=== PATIENT | male | born 1955 | race Caucasian/White ===

== ENCOUNTER 2016-07-14 18:46 | Inpatient (IN) | payer OTHER ==
[~2016-07-14] VITALS: Ht 177.8 cm; Wt 79.4 kg
[~2016-07-14 18:46] MED LIST: MOTRIN800 MG PO; NOHOMEMEDS; OMEPRAZOLE40 M1 PO; PERCOCET 10/1 TABLET PO; PERCOCET 5/31 TABLET PO; ZOFRAN ODT4 MG PO
[2016-07-14 19:43] LABS: AMPHETAMINE NEGATIVE (500 ng/mL); BARBITURATES NEGATIVE (200 ng/mL); BENZODIAZEPINES PRESUMPTIVE POSITIVE (150 ng/mL); COCAINE PRESUMPTIVE POSITIVE (150 ng/mL); METHADONE NEGATIVE (200 ng/mL); METHAMPHETAMINE NEGATIVE (500 ng/mL); OPIATES (MORPHINE) NEGATIVE (100 ng/mL); OXYCODONE NEGATIVE (100 ng/mL); PHENCYCLIDINE NEGATIVE (25 ng/mL); PROPOXYPHENE NEGATIVE (300 ng/mL); THC CANNABINOIDS NEGATIVE (50 ng/mL); TRICYCLIC ANTIDEPRESSANTS NEGATIVE (300 ng/mL)
[2016-07-14 19:44] LABS: ADD MEDTOX COMMENT Y; INTERNAL CONTROLS VALID? YES
[2016-07-14 19:49] LABS: EOSINOPHIL (%) 0.8 % (0-5); EOSINOPHIL COUNT 0.1 K/uL (0-0.3); HEMATOCRIT 55.8 % (38.0-50.0); IMMATURE GRANULOCYTE (%) 1.3 % (0.0-0.7); IMMATURE GRANULOCYTE COUNT 0.1 K/uL; INSTRUMENT ABS NEUTROPHIL CT 5.9 K/uL; LYMPHOCYTE COUNT 2.5 K/uL (1.0-2.8); MCHC 33.5 G/DL (30.0-36.0); MCV 95.4 FL (86-99); MEAN PLAT.VOLUME 9.1 uM^3 (9.0-12.4); MONOCYTE (%) 6.8 % (3-12); MONOCYTE COUNT 0.6 K/uL (0-0.8); NEUTROPHIL (%) 63.3 % (45-76); NEUTROPHIL COUNT 5.9 K/uL (1.8-6.4); PLATELET COUNT 270 K/uL (156-360); RBC DIS.WIDTH-CV 13.6 % (11.8-14.6); RBC DIS.WIDTH-SD 48.5 % (39-53); RED BLOOD COUNT 5.85 M/uL (4.00-5.50); WHITE BLOOD COUNT 9.3 K/uL (4.1-10.2)
[2016-07-14 20:00] LABS: CHLORIDE 105 mEq/L (99-109); POTASSIUM 3.7 mEq/L (3.7-5.4); SODIUM 140 mEq/L (136-147)
[2016-07-14 20:02] LABS: GLUCOSE 169 mg/dL (70-99)
[2016-07-14 20:04] LABS: ANION GAP 14 MEQ/L (2-14)
[2016-07-14 20:05] LABS: SERUM ETHYL ALCOHOL 28 mg/dL
[2016-07-14 20:06] LABS: ALKALINE PHOSPHATASE 87 IU/L (3-129); GFR ESTIMATE (CALCULATED) > 59 mL/min/
[2016-07-14 20:07] LABS: UREA NITROGEN (BUN) 6 mg/dL (9-23)
[2016-07-14 20:08] LABS: DIRECT BILIRUBIN 0.3 mg/dL (0.0-0.3)
[2016-07-14 20:10] LABS: CREATINE KINASE 334 IU/L (1-294); LIPASE 57 U/L (1.0-51.0); TROP-I INTERPRETATION NEGATIVE; TROPONIN-I 0.01 ng/mL (0.0-0.30)
[2016-07-14 20:39] LABS: BENZODIAZEPINES, URINE SCREEN POSITIVE (200 ng/mL)
[2016-07-14 21:38] LABS: BASE EXCESS -3.9 mEq/L (-3 to +3); BICARBONATE 26.4 mEq/L (22-26); CARBOXY HGB 2.6 % (0-5); METHEMOGLOBIN 1.2 % (0-1.5); PCO2 69 mm Hg (35-45); PO2 104 mm Hg (80-100)
[2016-07-14 21:39] LABS: COMMENTS - BLOOD GASES A+C+; DEVICE VENT; FI02 100 %; MECHANICAL RATE 16 resp/min; MODE AC; PEEP 5 CM/H20; SITE RR; TIDAL VOLUME 400 ML; pH 7.19 (7.35-7.45)
[2016-07-15] VITALS (30 sets, daily range): BP systolic 0–121; BP diastolic 0–90
[2016-07-15 01:18] LABS: POINT-OF-CARE METER ID UU13113731
[2016-07-15 02:31] LABS: METH RESISTANT S AUREUS PCR NEGATIVE (NEGATIVE)
[2016-07-15 02:32] LABS: PROBE CHECK PASS; SPECIMEN PROCESSING CONTROL PASS
[2016-07-15 02:33] LABS: INFLUENZA A VIRAL ANTIGEN NEGATIVE; INFLUENZA B VIRAL ANTIGEN NEGATIVE
[2016-07-15 05:25] LABS: INTER. NORMALIZED RATIO 1.1
[2016-07-15 06:13] LABS: HEMATOCRIT 49.5 % (38.0-50.0); MCHC 33.3 G/DL (30.0-36.0); MCV 95.9 FL (86-99); MEAN PLAT.VOLUME 9.3 uM^3 (9.0-12.4); RBC DIS.WIDTH-SD 49.5 % (39-53); RED BLOOD COUNT 5.16 M/uL (4.00-5.50); WHITE BLOOD COUNT 13.1 K/uL (4.1-10.2)
[2016-07-15 06:14] LABS: PLATELET COUNT 187 K/uL (156-360)
[2016-07-15 06:23] LABS: ALKALINE PHOSPHATASE 63 IU/L (3-129); ANION GAP 11 MEQ/L (2-14); CHLORIDE 106 MEQ/L (99-109); GFR ESTIMATE (CALCULATED) > 59 mL/min/; MAGNESIUM 1.6 mg/dl (1.3-2.7); POTASSIUM 4.2 MEQ/L (3.7-5.4); SAMPLE HEMOLYSIS CHECK 0; SAMPLE ICTERIC CHECK 0; SAMPLE LIPEMIA CHECK 0; SODIUM 142 MEQ/L (136-147); TOTAL BILIRUBIN 1.1 MG/DL (0.0-1.0); UREA NITROGEN (BUN) 6 mg/dL (9-23)
[2016-07-15 06:24] LABS: GLUCOSE 102 mg/dL (70-99)
[2016-07-15 06:27] LABS: BASE EXCESS 0.9 mEq/L (-3 to +3); BICARBONATE 25.3 mEq/L (22-26); CARBOXY HGB 1.9 % (0-5); COMMENTS - BLOOD GASES C+; DEVICE VENT; FI02 40 %; MECHANICAL RATE 20 resp/min; METHEMOGLOBIN 1.6 % (0-1.5); MODE AC; PCO2 39 mm Hg (35-45); PEEP 5 CM/H20; PO2 85 mm Hg (80-100); SITE LR; TIDAL VOLUME 400 ML; TOTAL RESP RATE 20 resp/min; pH 7.42 (7.35-7.45)
[2016-07-15 06:43] LABS: POINT-OF-CARE METER ID UU13113803
[2016-07-15] MEDS ORDERED: PERCOCET 5/31 TABLET PO (11:58)
[2016-07-15 12:22] LABS: POINT-OF-CARE METER ID UU13113803
[2016-07-15 18:17] LABS: POINT-OF-CARE METER ID UU13113803
[2016-07-16] VITALS (15 sets, daily range): BP systolic 124–153; BP diastolic 71–98
[2016-07-16 00:42] LABS: POINT-OF-CARE METER ID UU13113803
[2016-07-16 06:53] LABS: HEMATOCRIT 42.6 % (38.0-50.0); MCH 32.5 PG (29.0-34.0); MCV 95.5 FL (86-99); MEAN PLAT.VOLUME 9.7 uM^3 (9.0-12.4); PLATELET COUNT 155 K/uL (156-360); RBC DIS.WIDTH-CV 14.1 % (11.8-14.6); RBC DIS.WIDTH-SD 49.8 % (39-53); RED BLOOD COUNT 4.46 M/uL (4.00-5.50); WHITE BLOOD COUNT 9.3 K/uL (4.1-10.2)
[2016-07-16 07:13] LABS: ALKALINE PHOSPHATASE 53 IU/L (3-129); ANION GAP 7 MEQ/L (2-14); CHLORIDE 104 MEQ/L (99-109); GFR ESTIMATE (CALCULATED) > 59 mL/min/; GLUCOSE 77 mg/dL (70-99); MAGNESIUM 1.7 mg/dl (1.3-2.7); POTASSIUM 3.7 MEQ/L (3.7-5.4); SAMPLE HEMOLYSIS CHECK 0; SAMPLE ICTERIC CHECK 0; SAMPLE LIPEMIA CHECK 0; SODIUM 139 MEQ/L (136-147); UREA NITROGEN (BUN) 6 mg/dL (9-23)
[2016-07-16 07:22] LABS: TOTAL BILIRUBIN 1.4 MG/DL (0.0-1.0)
[2016-07-16 07:23] LABS: INTER. NORMALIZED RATIO 1.1; PROTHROMBIN TIME 11.4 (9.2-11.2)
[2016-07-16 12:17] LABS: POINT-OF-CARE METER ID UU14162636
[2016-07-17 06:35] LABS: HEMATOCRIT 44.5 % (38.0-50.0); MCH 32.4 PG (29.0-34.0); MCHC 34.6 G/DL (30.0-36.0); MCV 93.5 FL (86-99); MEAN PLAT.VOLUME 9.6 uM^3 (9.0-12.4); PLATELET COUNT 163 K/uL (156-360); RBC DIS.WIDTH-CV 13.4 % (11.8-14.6); RBC DIS.WIDTH-SD 46.4 % (39-53); RED BLOOD COUNT 4.76 M/uL (4.00-5.50)
[2016-07-17 06:44] LABS: INTER. NORMALIZED RATIO 1.1; PROTHROMBIN TIME 10.7 (9.2-11.2)
[2016-07-17 07:05] LABS: ALKALINE PHOSPHATASE 63 IU/L (3-129); ANION GAP 10 MEQ/L (2-14); CHLORIDE 104 MEQ/L (99-109); GFR ESTIMATE (CALCULATED) > 59 mL/min/; GLUCOSE 84 mg/dL (70-99); MAGNESIUM 1.8 mg/dl (1.3-2.7); POTASSIUM 3.5 MEQ/L (3.7-5.4); SAMPLE HEMOLYSIS CHECK 0; SAMPLE ICTERIC CHECK 0; SAMPLE LIPEMIA CHECK 0; SODIUM 140 MEQ/L (136-147); TOTAL BILIRUBIN 1.2 MG/DL (0.0-1.0); UREA NITROGEN (BUN) 5 mg/dL (9-23)
[2016-07-17 08:04] VITALS: BP 160/96
[2016-07-17 11:15] VITALS: BP 133/86; BP 143/72; BP 155/99
[2016-07-17 15:23] VITALS: BP 139/80
[2016-07-17 20:13] VITALS: BP 133/87
[2016-07-18] VITALS (7 sets, daily range): BP systolic 129–163; BP diastolic 79–90
[2016-07-18 06:04] LABS: HEMATOCRIT 45.6 % (38.0-50.0); MCH 32.8 PG (29.0-34.0); MCHC 34.4 G/DL (30.0-36.0); MCV 95.4 FL (86-99); MEAN PLAT.VOLUME 9.6 uM^3 (9.0-12.4); PLATELET COUNT 154 K/uL (156-360); RBC DIS.WIDTH-CV 13.6 % (11.8-14.6); RBC DIS.WIDTH-SD 47.8 % (39-53); RED BLOOD COUNT 4.78 M/uL (4.00-5.50); WHITE BLOOD COUNT 6.6 K/uL (4.1-10.2)
[2016-07-18 06:16] LABS: INTER. NORMALIZED RATIO 1.1; PROTHROMBIN TIME 10.8 (9.2-11.2)
[2016-07-18 06:54] LABS: ALKALINE PHOSPHATASE 56 IU/L (3-129); ANION GAP 6 MEQ/L (2-14); CHLORIDE 102 MEQ/L (99-109); GFR ESTIMATE (CALCULATED) > 59 mL/min/; GLUCOSE 83 mg/dL (70-99); MAGNESIUM 1.9 mg/dl (1.3-2.7); POTASSIUM 3.6 MEQ/L (3.7-5.4); SAMPLE HEMOLYSIS CHECK 0; SAMPLE ICTERIC CHECK 0; SAMPLE LIPEMIA CHECK 0; SODIUM 141 MEQ/L (136-147); UREA NITROGEN (BUN) 5 mg/dL (9-23)
[2016-07-18 06:58] LABS: TOTAL BILIRUBIN 0.8 MG/DL (0.0-1.0)
[2016-07-19 03:36] VITALS: BP 116/73
[2016-07-19 06:17] LABS: HEMATOCRIT 46.4 % (38.0-50.0); MCH 32.8 PG (29.0-34.0); MCHC 34.9 G/DL (30.0-36.0); MCV 93.9 FL (86-99); MEAN PLAT.VOLUME 9.3 uM^3 (9.0-12.4); PLATELET COUNT 152 K/uL (156-360); RBC DIS.WIDTH-CV 13.4 % (11.8-14.6); RED BLOOD COUNT 4.94 M/uL (4.00-5.50); WHITE BLOOD COUNT 7.1 K/uL (4.1-10.2)
[2016-07-19 07:38] VITALS: BP 118/72
[2016-07-19 09:40] LABS: ALKALINE PHOSPHATASE 61 IU/L (3-129); ANION GAP 8 MEQ/L (2-14); CHLORIDE 101 MEQ/L (99-109); GFR ESTIMATE (CALCULATED) > 59 mL/min/; GLUCOSE 84 mg/dL (70-99); MAGNESIUM 1.9 mg/dl (1.3-2.7); POTASSIUM 3.6 MEQ/L (3.7-5.4); SAMPLE HEMOLYSIS CHECK 0; SAMPLE ICTERIC CHECK 0; SAMPLE LIPEMIA CHECK 0; SODIUM 140 MEQ/L (136-147); TOTAL BILIRUBIN 0.6 MG/DL (0.0-1.0); UREA NITROGEN (BUN) 8 mg/dL (9-23)
[2016-07-19] MEDS ORDERED: PERCOCET 5/31 TABLET PO (10:15)
[2016-07-19 11:16] VITALS: BP 113/74
[2016-07-19 15:17] VITALS: BP 126/89
[2016-07-19 20:15] VITALS: BP 122/74
[2016-07-20] VITALS (7 sets, daily range): BP systolic 104–123; BP diastolic 55–79
[2016-07-20 06:14] LABS: HEMATOCRIT 45.7 % (38.0-50.0); MCH 31.9 PG (29.0-34.0); MCHC 34.1 G/DL (30.0-36.0); MCV 93.5 FL (86-99); MEAN PLAT.VOLUME 9.6 uM^3 (9.0-12.4); PLATELET COUNT 168 K/uL (156-360); RBC DIS.WIDTH-CV 13.2 % (11.8-14.6); RBC DIS.WIDTH-SD 45.2 % (39-53); RED BLOOD COUNT 4.89 M/uL (4.00-5.50); WHITE BLOOD COUNT 6.6 K/uL (4.1-10.2)
[2016-07-20 06:40] LABS: ALKALINE PHOSPHATASE 54 IU/L (3-129); ANION GAP 8 MEQ/L (2-14); CHLORIDE 103 MEQ/L (99-109); GFR ESTIMATE (CALCULATED) > 59 mL/min/; GLUCOSE 92 mg/dL (70-99); MAGNESIUM 1.9 mg/dl (1.3-2.7); POTASSIUM 3.6 MEQ/L (3.7-5.4); SAMPLE HEMOLYSIS CHECK 0; SAMPLE ICTERIC CHECK 0; SAMPLE LIPEMIA CHECK 0; SODIUM 141 MEQ/L (136-147); TOTAL BILIRUBIN 0.5 MG/DL (0.0-1.0); UREA NITROGEN (BUN) 8 mg/dL (9-23)
[2016-07-21 06:34] LABS: HEMATOCRIT 44.3 % (38.0-50.0); MCH 32.3 PG (29.0-34.0); MCHC 33.9 G/DL (30.0-36.0); MCV 95.3 FL (86-99); MEAN PLAT.VOLUME 9.5 uM^3 (9.0-12.4); PLATELET COUNT 183 K/uL (156-360); RBC DIS.WIDTH-CV 13.4 % (11.8-14.6); RBC DIS.WIDTH-SD 47.2 % (39-53); RED BLOOD COUNT 4.65 M/uL (4.00-5.50); WHITE BLOOD COUNT 6.2 K/uL (4.1-10.2)
[2016-07-21 07:11] LABS: ALKALINE PHOSPHATASE 54 IU/L (3-129); ANION GAP 6 MEQ/L (2-14); CHLORIDE 102 MEQ/L (99-109); GFR ESTIMATE (CALCULATED) > 59 mL/min/; GLUCOSE 85 mg/dL (70-99); MAGNESIUM 2.1 mg/dl (1.3-2.7); POTASSIUM 3.8 MEQ/L (3.7-5.4); SAMPLE HEMOLYSIS CHECK 0; SAMPLE ICTERIC CHECK 0; SAMPLE LIPEMIA CHECK 0; SODIUM 142 MEQ/L (136-147); TOTAL BILIRUBIN 0.5 MG/DL (0.0-1.0); UREA NITROGEN (BUN) 10 mg/dL (9-23)
[2016-07-21 07:16] VITALS: BP 153/80
[2016-07-21 11:34] VITALS: BP 106/60
[2016-07-21 15:29] VITALS: BP 116/78
[2016-07-21 19:59] VITALS: BP 127/81
[2016-07-21 23:49] VITALS: BP 146/76
[2016-07-22 03:39] VITALS: BP 142/76
[2016-07-22 07:48] VITALS: BP 113/86
[2016-07-22] MEDS ORDERED: ADVAIR HFA120 INHAL1 IH (08:07)
[2016-07-22] MEDS ORDERED: ESCITALOPRAM OX10 MG PO (08:07)
[2016-07-22] MEDS ORDERED: AZITHROMYCIN500 M1 PO (08:07)
[2016-07-22] MEDS ORDERED: VENTOLIN HFA18 GM IH (08:07)
[2016-07-22] MEDS ORDERED: SPIRIVA RESPIMAT4 GM IH (08:07)
[2016-07-22] MEDS ORDERED: NICOTINE PATCH1 EAC2 TD (08:07)
[2016-07-22] MEDS ORDERED: PREDNISONE20 MG PO (08:07)
[2016-07-22 11:07] VITALS: BP 109/70
== END 2016-07-22 15:25 | disposition home or self-care (01) | DRG 208 ==
LOC: EME 18:46 → EDBD 18:46 → 4WEST 22:28 → EDOF 22:28 → EDBD 22:28 → 5SOUTH 22:28 → 4WEST 23:50 → 5SOUTH 07-16 18:09
PROVIDERS: Emergency Medicine; Internal Medicine
DX: J44.9 Chronic obstructive pulmonary disease, unspecified (principal); G92 Toxic encephalopathy; G93.1 Anoxic brain damage, not elsewhere classified; S02.40EA Zygomatic fracture, right side, initial encounter for closed fracture; S02.40CA Maxillary fracture, right side, initial encounter for closed fracture; E87.2 Acidosis; D75.1 Secondary polycythemia; G89.29 Other chronic pain; F14.10 Cocaine abuse, uncomplicated; F16.90 Hallucinogen use, unspecified, uncomplicated; K71.6 Toxic liver disease with hepatitis, not elsewhere classified; W19.XXXA Unspecified fall, initial encounter; K57.90 Diverticulosis of intestine, part unspecified, without perforation or abscess without bleeding; F10.10 Alcohol abuse, uncomplicated; F19.20 Other psychoactive substance dependence, uncomplicated; F32.9 Major depressive disorder, single episode, unspecified; F41.1 Generalized anxiety disorder; K76.89 Other specified diseases of liver; T50.901A Poisoning by unspecified drugs, medicaments and biological substances, accidental (unintentional), initial encounter; Z72.0 Tobacco use; Z98.1 Arthrodesis status
CPT/HCPCS: 36600; 70450; 71010; 71250; 71260; 72125; 74177; 80048; 80053; 80076; 80202; 82550; 82803; 82948; 83605; 83690; 83735; 84100; 84484; 84999; 85025; 85027; 85610; 87040; 87070; 87205; 87502; 87641; 93005; 94002; 94003; 94640; 94640 76; 94644; 94799; 97530 GP; 99202; 99281; 99285; G0480; J0456; J1650; J1815; J2060; J2250; J2270; J2310; J2405; J2543; J2704; J3370; J7030; J7050; J7120; J7512; S0028

== ENCOUNTER 2017-05-06 07:24 | Emergency (ER) | payer OTHER ==
[~2017-05-06] VITALS: Ht 167.6 cm; Wt 66.3 kg
[~2017-05-06 07:24] MED LIST changes: +ADVAIR HFA120 INHAL1 IH; +AZITHROMYCIN500 M1 PO; +ESCITALOPRAM OX10 MG PO; +NICOTINE PATCH1 EAC2 TD; +PREDNISONE20 MG PO; +SPIRIVA RESPIMAT4 GM IH; +VENTOLIN HFA18 GM IH
[2017-05-06 07:54] LABS: HEMATOCRIT 45.4 % (38.0-50.0); HEMOGLOBIN 16.2 G/DL (12.5-16.6); MCHC 35.7 G/DL (30.0-36.0); MCV 86.8 FL (86-99); PLATELET COUNT 236 K/uL (156-360); RBC DIS.WIDTH-CV 13.1 % (11.8-14.6); RBC DIS.WIDTH-SD 41.4 % (39-53); RED BLOOD COUNT 5.23 M/uL (4.00-5.50); WHITE BLOOD COUNT 12.1 K/uL (4.1-10.2)
[2017-05-06 08:03] LABS: CHLORIDE 105 mEq/L (99-109); POTASSIUM 3.9 mEq/L (3.7-5.4); SODIUM 139 mEq/L (136-147)
[2017-05-06 08:05] LABS: GLUCOSE 140 mg/dL (70-99)
[2017-05-06 08:09] LABS: CREATININE 0.9 mg/dL (0.6-1.3); GFR ESTIMATE (CALCULATED) > 59 mL/min/ (58.99-99999)
[2017-05-06 08:10] LABS: UREA NITROGEN (BUN) 13 mg/dL (9-23)
[2017-05-06 08:14] LABS: TROP-I INTERPRETATION NEGATIVE; TROPONIN-I < 0.01 ng/mL (0.0-0.30)
[2017-05-06] MEDS ORDERED: LIDODERM 5% P1 PATCH TD (08:48)
[2017-05-06] MEDS ORDERED: MOTRIN800 MG PO (08:48)
[2017-05-06 09:11] VITALS: BP 142/91
== END 2017-05-06 09:18 | disposition home or self-care (01) ==
LOC: EME 07:24
PROVIDERS: Nurse Practitioner Family
DX: S40.011A Contusion of right shoulder, initial encounter (principal); S39.012A Strain of muscle, fascia and tendon of lower back, initial encounter; W18.30XA Fall on same level, unspecified, initial encounter; Z98.1 Arthrodesis status; G89.29 Other chronic pain; F17.200 Nicotine dependence, unspecified, uncomplicated; Z88.2 Allergy status to sulfonamides; Z88.8 Allergy status to other drugs, medicaments and biological substances
CPT/HCPCS: 72100; 73030; 80048; 84484; 85027; 93005; 99281; 99285

== ENCOUNTER 2017-08-05 21:00 | Inpatient (IN) | payer OTHER ==
[~2017-08-05] VITALS: Ht 165.1 cm; Wt 74.6 kg
[~2017-08-05 21:00] MED LIST changes: +LIDODERM 5% P1 PATCH TD
[2017-08-05 21:44] LABS: BASOPHIL (%) 0.5 % (0-1); BASOPHIL COUNT 0.1 K/uL (0-0.1); EOSINOPHIL (%) 0.9 % (0-5); EOSINOPHIL COUNT 0.1 K/uL (0-0.3); HEMATOCRIT 41.9 % (38.0-50.0); HEMOGLOBIN 14.9 G/DL (12.5-16.6); IMMATURE GRANULOCYTE (%) 0.7 % (0.0-0.7); LYMPHOCYTE (%) 31.3 % (15-42); LYMPHOCYTE COUNT 3.1 K/uL (1.0-2.8); MCH 32.1 PG (29.0-34.0); MCHC 35.6 G/DL (30.0-36.0); MCV 90.3 FL (86-99); MONOCYTE (%) 8.6 % (3-12); MONOCYTE COUNT 0.8 K/uL (0-0.8); NEUTROPHIL COUNT 5.6 K/uL (1.8-6.4); PLATELET COUNT 228 K/uL (156-360); RBC DIS.WIDTH-CV 14.2 % (11.8-14.6); RBC DIS.WIDTH-SD 46.8 % (39-53); RED BLOOD COUNT 4.64 M/uL (4.00-5.50); WHITE BLOOD COUNT 9.7 K/uL (4.1-10.2)
[2017-08-05 22:07] LABS: AMYLASE 28 IU/L (1-118); CHLORIDE 101 mEq/L (99-109); POTASSIUM 2.6 mEq/L (3.7-5.4); SODIUM 145 mEq/L (136-147)
[2017-08-05 22:09] LABS: GLUCOSE 96 mg/dL (70-99)
[2017-08-05 22:12] LABS: SERUM ETHYL ALCOHOL 145 mg/dL
[2017-08-05 22:13] LABS: CREATININE 0.7 mg/dL (0.6-1.3); GFR ESTIMATE (CALCULATED) > 59 mL/min/ (58.99-99999)
[2017-08-05 22:14] LABS: UREA NITROGEN (BUN) 8 mg/dL (9-23)
[2017-08-05 22:15] LABS: TROP-I INTERPRETATION NEGATIVE; TROPONIN-I < 0.01 ng/mL (0.0-0.30)
[2017-08-05 22:16] LABS: LIPASE 49 U/L (1.0-51.0)
[2017-08-05 23:42] LABS: APPEARANCE CLEAR ((CLEAR)); BILIRUBIN NEGATIVE; BLOOD NEGATIVE; COLOR YELLOW ((YELLOW)); GLUCOSE (STRIP) NEGATIVE; KETONES NEGATIVE; LEUKOCYTES NEGATIVE; NITRITE NEGATIVE; PROTEIN (STRIP) NEGATIVE; SPECIFIC GRAVITY 1.046 (1.000-1.030); UCUL ADDED? NO; UROBILINOGEN 0.2 MG/DL (0.2-1.0)
[2017-08-05 23:51] LABS: AMPHETAMINE NEGATIVE (500 ng/mL); BARBITURATES NEGATIVE (200 ng/mL); BENZODIAZEPINES PRESUMPTIVE POSITIVE (150 ng/mL); BUPRENORPHINE NEGATIVE (10 ng/mL); COCAINE NEGATIVE (150 ng/mL); METHADONE NEGATIVE (200 ng/mL); METHAMPHETAMINE NEGATIVE (500 ng/mL); OPIATES (MORPHINE) NEGATIVE (100 ng/mL); OXYCODONE NEGATIVE (100 ng/mL); PHENCYCLIDINE NEGATIVE (25 ng/mL); PROPOXYPHENE NEGATIVE (300 ng/mL); THC CANNABINOIDS NEGATIVE (50 ng/mL); TRICYCLIC ANTIDEPRESSANTS NEGATIVE (300 ng/mL)
[2017-08-06] VITALS (11 sets, daily range): BP systolic 107–168; BP diastolic 72–108
[2017-08-06 03:05] LABS: BENZODIAZEPINES, URINE SCREEN Negative (200 ng/mL)
[2017-08-06] MEDS ORDERED: PERCOCET 10/1 TABLET PO (04:18)
[2017-08-06 08:00] LABS: HEMOGLOBIN 14.1 G/DL (12.5-16.6); MCH 31.5 PG (29.0-34.0); MCHC 34.4 G/DL (30.0-36.0); MCV 91.7 FL (86-99); PLATELET COUNT 199 K/uL (156-360); RBC DIS.WIDTH-CV 14.5 % (11.8-14.6); RBC DIS.WIDTH-SD 48.9 % (39-53); RED BLOOD COUNT 4.47 M/uL (4.00-5.50); WHITE BLOOD COUNT 8.2 K/uL (4.1-10.2)
[2017-08-06 08:12] LABS: CHLORIDE 101 MEQ/L (99-109); CREATININE 0.5 MG/DL (0.6-1.3); GFR ESTIMATE (CALCULATED) > 59 mL/min/ (58.99-99999); GLUCOSE 109 mg/dL (70-99); POTASSIUM 2.7 MEQ/L (3.7-5.4); SODIUM 141 MEQ/L (136-147); UREA NITROGEN (BUN) 7 mg/dL (9-23)
[2017-08-07] VITALS (7 sets, daily range): BP systolic 120–160; BP diastolic 81–95
[2017-08-07 05:53] LABS: HEMATOCRIT 41.5 % (38.0-50.0); HEMOGLOBIN 14.1 G/DL (12.5-16.6); MCH 31.4 PG (29.0-34.0); MCV 92.4 FL (86-99); PLATELET COUNT 181 K/uL (156-360); RBC DIS.WIDTH-CV 14.6 % (11.8-14.6); RBC DIS.WIDTH-SD 49.5 % (39-53); RED BLOOD COUNT 4.49 M/uL (4.00-5.50); WHITE BLOOD COUNT 6.4 K/uL (4.1-10.2)
[2017-08-07 06:28] LABS: ALKALINE PHOSPHATASE 89 IU/L (3-129); ALT (GPT) 75 IU/L (3-49); AST (GOT) 50 IU/L (2-34); CHLORIDE 102 MEQ/L (99-109); CREATININE 0.7 MG/DL (0.6-1.3); GFR ESTIMATE (CALCULATED) > 59 mL/min/ (58.99-99999); GLUCOSE 105 mg/dL (70-99); SODIUM 142 MEQ/L (136-147); TOTAL BILIRUBIN 0.9 MG/DL (0.0-1.0); TOTAL PROTEIN 5.2 G/DL (6.4-8.3); UREA NITROGEN (BUN) 8 mg/dL (9-23)
[2017-08-07 06:34] LABS: POTASSIUM 3.5 MEQ/L (3.7-5.4)
[2017-08-07] MEDS ORDERED: CHLORZOXAZONE500 MG PO (17:04)
[2017-08-08 03:21] VITALS: BP 138/79
[2017-08-08 07:49] VITALS: BP 148/94
[2017-08-08 11:57] VITALS: BP 144/80
== END 2017-08-08 13:16 | disposition home or self-care (01) | DRG 964 ==
LOC: EME → TRA 21:00 → EDBD 21:00 → EDOF 08-06 01:22 → 3EAST 08-06 01:22 → 4WEST 08-06 01:22 → ENRESERV 08-06 01:39 → ENRESERVDT 08-06 02:05 → ENRESERVTM 08-06 02:05 → ENRESERV 08-06 02:05 → 4WEST 08-06 03:44 → ENRESERV 08-06 11:35 → 3EAST 08-06 12:47
PROVIDERS: Emergency Medicine; Internal Medicine; Surgery
DX: S14.159A Other incomplete lesion at unspecified level of cervical spinal cord, initial encounter (principal); S06.0X1A Concussion with loss of consciousness of 30 minutes or less, initial encounter; S14.3XXA Injury of brachial plexus, initial encounter; S40.012A Contusion of left shoulder, initial encounter; S20.212A Contusion of left front wall of thorax, initial encounter; S39.012A Strain of muscle, fascia and tendon of lower back, initial encounter; Y04.2XXA Assault by strike against or bumped into by another person, initial encounter; Y92.414 Local residential or business street as the place of occurrence of the external cause; S16.1XXA Strain of muscle, fascia and tendon at neck level, initial encounter; S29.012A Strain of muscle and tendon of back wall of thorax, initial encounter; S00.83XA Contusion of other part of head, initial encounter; J44.1 Chronic obstructive pulmonary disease with (acute) exacerbation; E86.0 Dehydration; E87.6 Hypokalemia; R33.9 Retention of urine, unspecified; I10 Essential (primary) hypertension; M54.42 Lumbago with sciatica, left side; G89.21 Chronic pain due to trauma; R26.2 Difficulty in walking, not elsewhere classified; F10.229 Alcohol dependence with intoxication, unspecified; Y90.6 Blood alcohol level of 120-199 mg/100 ml; R11.2 Nausea with vomiting, unspecified; K57.30 Diverticulosis of large intestine without perforation or abscess without bleeding; I25.10 Atherosclerotic heart disease of native coronary artery without angina pectoris; K76.0 Fatty (change of) liver, not elsewhere classified; K02.9 Dental caries, unspecified; F14.10 Cocaine abuse, uncomplicated; F13.10 Sedative, hypnotic or anxiolytic abuse, uncomplicated; Z60.2 Problems related to living alone; Z56.0 Unemployment, unspecified; Z79.891 Long term (current) use of opiate analgesic; Z87.891 Personal history of nicotine dependence; Z86.73 Personal history of transient ischemic attack (TIA), and cerebral infarction without residual deficits; Z98.1 Arthrodesis status
CPT/HCPCS: 62302; 70450; 71260; 72125; 72126; 72129; 72132; 73564; 74177; 80048; 80053; 81003; 82150; 83690; 84153; 84484; 84999; 85025; 85027; 86850; 86900; 86901; 87641; 93005; 94799; 99281; 99285; G0480; J2405; J3010

== ENCOUNTER 2017-08-10 20:49 | Inpatient (IN) | payer OTHER ==
[~2017-08-10] VITALS: Ht 165.1 cm; Wt 68.9 kg
[~2017-08-10 20:49] MED LIST changes: +CHLORZOXAZONE500 MG PO
[2017-08-10 23:01] LABS: BASOPHIL (%) 0.5 % (0-1); BASOPHIL COUNT 0.1 K/uL (0-0.1); EOSINOPHIL (%) 0.3 % (0-5); HEMATOCRIT 43.7 % (38.0-50.0); HEMOGLOBIN 15.1 G/DL (12.5-16.6); IMMATURE GRANULOCYTE (%) 0.6 % (0.0-0.7); LYMPHOCYTE (%) 14.5 % (15-42); LYMPHOCYTE COUNT 1.7 K/uL (1.0-2.8); MCH 32.5 PG (29.0-34.0); MCHC 34.6 G/DL (30.0-36.0); MCV 94.2 FL (86-99); MONOCYTE (%) 11.2 % (3-12); MONOCYTE COUNT 1.3 K/uL (0-0.8); NEUTROPHIL (%) 72.9 % (45-76); NEUTROPHIL COUNT 8.7 K/uL (1.8-6.4); PLATELET COUNT 224 K/uL (156-360); RBC DIS.WIDTH-CV 14.9 % (11.8-14.6); RBC DIS.WIDTH-SD 51.8 % (39-53); RED BLOOD COUNT 4.64 M/uL (4.00-5.50)
[2017-08-10 23:09] LABS: ALBUMIN 3.8 g/dL (3.2-4.8); CHLORIDE 105 mEq/L (99-109); POTASSIUM 2.8 mEq/L (3.7-5.4); SODIUM 146 mEq/L (136-147)
[2017-08-10 23:11] LABS: GLUCOSE 164 mg/dL (70-99)
[2017-08-10 23:13] LABS: TOTAL BILIRUBIN 0.6 mg/dL (0.0-1.0)
[2017-08-10 23:15] LABS: ALKALINE PHOSPHATASE 140 IU/L (3-129); CREATININE 0.8 mg/dL (0.6-1.3); GFR ESTIMATE (CALCULATED) > 59 mL/min/ (58.99-99999)
[2017-08-10 23:16] LABS: UREA NITROGEN (BUN) 9 mg/dL (9-23)
[2017-08-10 23:17] LABS: AST (GOT) 44 IU/L (2-34)
[2017-08-10 23:18] LABS: ALT (GPT) 60 IU/L (3-49)
[2017-08-11] VITALS (7 sets, daily range): BP systolic 121–161; BP diastolic 73–97
[2017-08-11] MEDS ORDERED: LIDODERM 5% P1 PATCH TD (01:03)
[2017-08-11] MEDS ORDERED: VENTOLIN HFA18 GM IH (01:06)
[2017-08-11 02:38] LABS: POTASSIUM 2.7 mEq/L (3.7-5.4)
[2017-08-11 02:39] LABS: MAGNESIUM 1.5 mg/dL (1.3-2.7)
[2017-08-11 13:19] LABS: CREATININE 0.6 MG/DL (0.6-1.3); GFR ESTIMATE (CALCULATED) > 59 mL/min/ (58.99-99999); SODIUM 147 MEQ/L (136-147); UREA NITROGEN (BUN) 8 mg/dL (9-23)
[2017-08-11 13:24] LABS: CHLORIDE 114 MEQ/L (99-109); GLUCOSE 98 mg/dL (70-99); POTASSIUM 4.1 MEQ/L (3.7-5.4)
[2017-08-12 03:32] VITALS: BP 127/75
[2017-08-12 07:11] LABS: ALBUMIN 2.7 G/DL (3.2-4.8); ALKALINE PHOSPHATASE 77 IU/L (3-129); ALT (GPT) 34 IU/L (3-49); CHLORIDE 105 MEQ/L (99-109); CREATININE 0.5 MG/DL (0.6-1.3); GFR ESTIMATE (CALCULATED) > 59 mL/min/ (58.99-99999); GLUCOSE 109 mg/dL (70-99); TOTAL PROTEIN 4.6 G/DL (6.4-8.3); UREA NITROGEN (BUN) 3 mg/dL (9-23)
[2017-08-12 07:17] LABS: AST (GOT) 26 IU/L (2-34); POTASSIUM 3.1 MEQ/L (3.7-5.4); SODIUM 138 MEQ/L (136-147); TOTAL BILIRUBIN 0.7 MG/DL (0.0-1.0)
[2017-08-12 07:41] LABS: BASOPHIL (%) 0.4 % (0-1); EOSINOPHIL COUNT 0.1 K/uL (0-0.3); HEMATOCRIT 34.1 % (38.0-50.0); IMMATURE GRANULOCYTE (%) 0.6 % (0.0-0.7); LYMPHOCYTE (%) 16.3 % (15-42); LYMPHOCYTE COUNT 1.2 K/uL (1.0-2.8); MCH 31.9 PG (29.0-34.0); MCHC 33.7 G/DL (30.0-36.0); MCV 94.7 FL (86-99); MONOCYTE COUNT 0.8 K/uL (0-0.8); NEUTROPHIL (%) 70.7 % (45-76); NEUTROPHIL COUNT 5.1 K/uL (1.8-6.4); PLATELET COUNT 185 K/uL (156-360); RBC DIS.WIDTH-CV 14.9 % (11.8-14.6); RBC DIS.WIDTH-SD 52.4 % (39-53); WHITE BLOOD COUNT 7.2 K/uL (4.1-10.2)
[2017-08-12 07:42] LABS: HEMOGLOBIN 11.5 G/DL (12.5-16.6)
[2017-08-12 08:31] VITALS: BP 128/67
[2017-08-12 10:51] LABS: MAGNESIUM 1.8 mg/dl (1.3-2.7)
[2017-08-12 12:42] VITALS: BP 116/81
[2017-08-12 15:52] VITALS: BP 124/73
[2017-08-12 20:24] VITALS: BP 139/93
[2017-08-12 23:54] VITALS: BP 169/99
[2017-08-13] VITALS (7 sets, daily range): BP systolic 124–168; BP diastolic 80–96
[2017-08-13 06:02] LABS: BASOPHIL (%) 0.3 % (0-1); EOSINOPHIL (%) 0.5 % (0-5); HEMOGLOBIN 12.4 G/DL (12.5-16.6); IMMATURE GRANULOCYTE (%) 0.5 % (0.0-0.7); LYMPHOCYTE (%) 18.5 % (15-42); LYMPHOCYTE COUNT 1.2 K/uL (1.0-2.8); MCH 32.2 PG (29.0-34.0); MCHC 34.4 G/DL (30.0-36.0); MCV 93.5 FL (86-99); MONOCYTE (%) 9.2 % (3-12); MONOCYTE COUNT 0.6 K/uL (0-0.8); NEUTROPHIL COUNT 4.4 K/uL (1.8-6.4); RBC DIS.WIDTH-CV 14.2 % (11.8-14.6); RBC DIS.WIDTH-SD 48.8 % (39-53); RED BLOOD COUNT 3.85 M/uL (4.00-5.50); WHITE BLOOD COUNT 6.2 K/uL (4.1-10.2)
[2017-08-13 06:03] LABS: PLATELET COUNT 247 K/uL (156-360)
[2017-08-13 06:27] LABS: ALBUMIN 2.8 G/DL (3.2-4.8); ALKALINE PHOSPHATASE 71 IU/L (3-129); ALT (GPT) 32 IU/L (3-49); AST (GOT) 21 IU/L (2-34); CHLORIDE 108 MEQ/L (99-109); CREATININE 0.5 MG/DL (0.6-1.3); GFR ESTIMATE (CALCULATED) > 59 mL/min/ (58.99-99999); GLUCOSE 112 mg/dL (70-99); POTASSIUM 3.4 MEQ/L (3.7-5.4); SODIUM 142 MEQ/L (136-147); TOTAL PROTEIN 4.9 G/DL (6.4-8.3); UREA NITROGEN (BUN) 3 mg/dL (9-23)
[2017-08-13 06:28] LABS: TOTAL BILIRUBIN 0.4 MG/DL (0.0-1.0)
[2017-08-13 11:18] LABS: HEPATITIS B SURFACE ANTIGEN Nonreactive
[2017-08-14 04:00] VITALS: BP 131/88
[2017-08-14 06:51] LABS: BASOPHIL (%) 0.3 % (0-1); EOSINOPHIL (%) 0.1 % (0-5); HEMATOCRIT 39.4 % (38.0-50.0); HEMOGLOBIN 13.3 G/DL (12.5-16.6); IMMATURE GRANULOCYTE (%) 0.9 % (0.0-0.7); LYMPHOCYTE (%) 15.3 % (15-42); LYMPHOCYTE COUNT 1.2 K/uL (1.0-2.8); MCH 31.8 PG (29.0-34.0); MCHC 33.8 G/DL (30.0-36.0); MCV 94.3 FL (86-99); MONOCYTE (%) 4.3 % (3-12); MONOCYTE COUNT 0.3 K/uL (0-0.8); NEUTROPHIL (%) 79.1 % (45-76); NEUTROPHIL COUNT 6.2 K/uL (1.8-6.4); PLATELET COUNT 254 K/uL (156-360); RBC DIS.WIDTH-CV 14.5 % (11.8-14.6); RBC DIS.WIDTH-SD 50.5 % (39-53); RED BLOOD COUNT 4.18 M/uL (4.00-5.50); WHITE BLOOD COUNT 7.8 K/uL (4.1-10.2)
[2017-08-14 07:12] LABS: ALKALINE PHOSPHATASE 75 IU/L (3-129); ALT (GPT) 35 IU/L (3-49); AST (GOT) 22 IU/L (2-34); CHLORIDE 106 MEQ/L (99-109); CREATININE 0.5 MG/DL (0.6-1.3); GFR ESTIMATE (CALCULATED) > 59 mL/min/ (58.99-99999); GLUCOSE 134 mg/dL (70-99); POTASSIUM 3.7 MEQ/L (3.7-5.4); SODIUM 142 MEQ/L (136-147); TOTAL PROTEIN 5.4 G/DL (6.4-8.3); UREA NITROGEN (BUN) 3 mg/dL (9-23)
[2017-08-14 07:15] LABS: TOTAL BILIRUBIN 0.3 MG/DL (0.0-1.0)
[2017-08-14 08:24] VITALS: BP 134/82
[2017-08-14 12:01] VITALS: BP 150/78
[2017-08-14 17:00] VITALS: BP 118/74
[2017-08-14 17:21] LABS: HCV RNA (IU/mL) <15 IU/mL (())
[2017-08-14 19:20] VITALS: BP 132/82
[2017-08-14 23:02] VITALS: BP 119/77
[2017-08-15 05:05] VITALS: BP 160/96
[2017-08-15 07:38] LABS: BASOPHIL (%) 0.3 % (0-1); EOSINOPHIL (%) 0.2 % (0-5); HEMATOCRIT 38.8 % (38.0-50.0); HEMOGLOBIN 13.1 G/DL (12.5-16.6); IMMATURE GRANULOCYTE (%) 1.6 % (0.0-0.7); LYMPHOCYTE (%) 18.7 % (15-42); LYMPHOCYTE COUNT 1.8 K/uL (1.0-2.8); MCHC 33.8 G/DL (30.0-36.0); MCV 94.9 FL (86-99); MONOCYTE (%) 5.8 % (3-12); MONOCYTE COUNT 0.6 K/uL (0-0.8); NEUTROPHIL (%) 73.4 % (45-76); NEUTROPHIL COUNT 7.2 K/uL (1.8-6.4); PLATELET COUNT 285 K/uL (156-360); RBC DIS.WIDTH-CV 14.6 % (11.8-14.6); RED BLOOD COUNT 4.09 M/uL (4.00-5.50); WHITE BLOOD COUNT 9.8 K/uL (4.1-10.2)
[2017-08-15 08:00] LABS: C-REACTIVE PROTEIN 16.3 MG/L (0-10); CHLORIDE 102 MEQ/L (99-109); CREATININE 0.6 MG/DL (0.6-1.3); GFR ESTIMATE (CALCULATED) > 59 mL/min/ (58.99-99999); GLUCOSE 104 mg/dL (70-99); POTASSIUM 3.9 MEQ/L (3.7-5.4); SODIUM 142 MEQ/L (136-147); UREA NITROGEN (BUN) 6 mg/dL (9-23)
[2017-08-15 08:21] VITALS: BP 143/90
[2017-08-15 08:28] LABS: ERTH.SED.RATE 41 MM/HR (0-20)
[2017-08-15 09:57] LABS: HEPATITIS C ANTIBODY Nonreactive
[2017-08-15 11:48] VITALS: BP 146/94
[2017-08-15 15:04] VITALS: BP 130/48
[2017-08-15 20:00] VITALS: BP 142/84
[2017-08-15 23:16] VITALS: BP 159/98
[2017-08-16 03:55] VITALS: BP 158/85
[2017-08-16 07:41] VITALS: BP 159/99
[2017-08-16 08:04] LABS: BASOPHIL (%) 0.5 % (0-1); BASOPHIL COUNT 0.1 K/uL (0-0.1); EOSINOPHIL (%) 0.5 % (0-5); EOSINOPHIL COUNT 0.1 K/uL (0-0.3); HEMATOCRIT 43.1 % (38.0-50.0); HEMOGLOBIN 14.9 G/DL (12.5-16.6); IMMATURE GRANULOCYTE (%) 2.5 % (0.0-0.7); LYMPHOCYTE (%) 25.3 % (15-42); LYMPHOCYTE COUNT 3.3 K/uL (1.0-2.8); MCH 32.6 PG (29.0-34.0); MCHC 34.6 G/DL (30.0-36.0); MCV 94.3 FL (86-99); MONOCYTE (%) 6.7 % (3-12); MONOCYTE COUNT 0.9 K/uL (0-0.8); NEUTROPHIL (%) 64.5 % (45-76); NEUTROPHIL COUNT 8.4 K/uL (1.8-6.4); RBC DIS.WIDTH-CV 14.6 % (11.8-14.6); RBC DIS.WIDTH-SD 50.4 % (39-53); RED BLOOD COUNT 4.57 M/uL (4.00-5.50); WHITE BLOOD COUNT 13.1 K/uL (4.1-10.2)
[2017-08-16 08:08] LABS: PLATELET COUNT 384 K/uL (156-360)
[2017-08-16 08:28] LABS: ALBUMIN 3.3 G/DL (3.2-4.8); ALKALINE PHOSPHATASE 88 IU/L (3-129); ALT (GPT) 36 IU/L (3-49); AST (GOT) 25 IU/L (2-34); CHLORIDE 102 MEQ/L (99-109); CREATININE 0.6 MG/DL (0.6-1.3); GFR ESTIMATE (CALCULATED) > 59 mL/min/ (58.99-99999); GLUCOSE 76 mg/dL (70-99); POTASSIUM 3.6 MEQ/L (3.7-5.4); SODIUM 144 MEQ/L (136-147); TOTAL PROTEIN 5.6 G/DL (6.4-8.3); UREA NITROGEN (BUN) 8 mg/dL (9-23)
[2017-08-16 08:33] LABS: TOTAL BILIRUBIN 0.4 MG/DL (0.0-1.0)
[2017-08-16 15:11] VITALS: BP 93/66
[2017-08-16 20:44] VITALS: BP 117/71
[2017-08-16 23:50] VITALS: BP 122/82
[2017-08-17] VITALS (7 sets, daily range): BP systolic 118–140; BP diastolic 59–641
[2017-08-17 07:03] LABS: BASOPHIL (%) 0.4 % (0-1); BASOPHIL COUNT 0.1 K/uL (0-0.1); EOSINOPHIL (%) 0.7 % (0-5); EOSINOPHIL COUNT 0.1 K/uL (0-0.3); HEMATOCRIT 41.3 % (38.0-50.0); HEMOGLOBIN 13.8 G/DL (12.5-16.6); IMMATURE GRANULOCYTE (%) 3.9 % (0.0-0.7); LYMPHOCYTE (%) 27.2 % (15-42); LYMPHOCYTE COUNT 3.3 K/uL (1.0-2.8); MCH 31.8 PG (29.0-34.0); MCHC 33.4 G/DL (30.0-36.0); MCV 95.2 FL (86-99); MONOCYTE (%) 5.9 % (3-12); MONOCYTE COUNT 0.7 K/uL (0-0.8); NEUTROPHIL (%) 61.9 % (45-76); NEUTROPHIL COUNT 7.5 K/uL (1.8-6.4); PLATELET COUNT 366 K/uL (156-360); RBC DIS.WIDTH-CV 14.8 % (11.8-14.6); RBC DIS.WIDTH-SD 51.9 % (39-53); RED BLOOD COUNT 4.34 M/uL (4.00-5.50); WHITE BLOOD COUNT 12.1 K/uL (4.1-10.2)
[2017-08-17 07:36] LABS: ALBUMIN 3.1 G/DL (3.2-4.8); ALKALINE PHOSPHATASE 72 IU/L (3-129); ALT (GPT) 32 IU/L (3-49); AST (GOT) 21 IU/L (2-34); CHLORIDE 102 MEQ/L (99-109); CREATININE 0.7 MG/DL (0.6-1.3); GFR ESTIMATE (CALCULATED) > 59 mL/min/ (58.99-99999); GLUCOSE 83 mg/dL (70-99); POTASSIUM 3.8 MEQ/L (3.7-5.4); SODIUM 143 MEQ/L (136-147); TOTAL PROTEIN 5.5 G/DL (6.4-8.3); UREA NITROGEN (BUN) 9 mg/dL (9-23)
[2017-08-17 07:38] LABS: TOTAL BILIRUBIN 0.3 MG/DL (0.0-1.0)
[2017-08-17 12:06] LABS: HCV RNA (LOG IU/mL) <1.18 (())
[2017-08-18 04:13] VITALS: BP 158/88
[2017-08-18 07:36] VITALS: BP 154/94
[2017-08-18 11:15] VITALS: BP 122/84
[2017-08-18] MEDS ORDERED: DOCUSATE SODIU100 MG PO (13:01)
[2017-08-18] MEDS ORDERED: ROCEPHIN 2 GM VI2 GM IV (13:06)
[2017-08-18] MEDS ORDERED: PERCOCET 10/1 TABLET PO (13:09)
[2017-08-18] MEDS ORDERED: NARCAN4 MG NS (13:09)
== END 2017-08-18 17:00 | disposition home or self-care (01) | DRG 854 ==
LOC: EME 20:49 → 3EAST 08-11 01:59 → EDOF 08-11 01:59 → ENRESERV 08-11 02:05 → 3EAST 08-11 03:31
PROVIDERS: Hospitalist; Internal Medicine; Internal Medicine Infectious Disease; Physician Assistant
PROC: 0R9V0ZZ Drainage of Left Metacarpophalangeal Joint, Open Approach (ICD-10-PCS; principal; 2017-08-11)
PROC: 0L980ZZ Drainage of Left Hand Tendon, Open Approach (ICD-10-PCS; principal; 2017-08-11)
PROC: 0R9V0ZZ Drainage of Left Metacarpophalangeal Joint, Open Approach (ICD-10-PCS; 2017-08-15)
PROC: 0L980ZZ Drainage of Left Hand Tendon, Open Approach (ICD-10-PCS; 2017-08-15)
DX: A40.0 Sepsis due to streptococcus, group A (principal); J44.1 Chronic obstructive pulmonary disease with (acute) exacerbation; S61.257A Open bite of left little finger without damage to nail, initial encounter; E87.6 Hypokalemia; M65.18 Other infective (teno)synovitis, other site; L02.512 Cutaneous abscess of left hand; L03.114 Cellulitis of left upper limb; Y04.1XXA Assault by human bite, initial encounter; Z59.0 Homelessness; F17.200 Nicotine dependence, unspecified, uncomplicated; I10 Essential (primary) hypertension; G89.29 Other chronic pain; I25.10 Atherosclerotic heart disease of native coronary artery without angina pectoris; F10.20 Alcohol dependence, uncomplicated; S61.452A Open bite of left hand, initial encounter; M65.9 Synovitis and tenosynovitis, unspecified; K59.00 Constipation, unspecified
CPT/HCPCS: 71045; 71275; 73130; 78582; 80048; 80053; 80202; 82948; 83605; 83735; 84132; 85025; 85379; 85651; 86140; 86803; 87040; 87070; 87075; 87077; 87147; 87186; 87205; 87340; 87522 90; 87536; 93005; 93970; 94640; 94760; 94799; 99281; 99285; A9540; A9567; J0295; J0690; J1100; J1170; J1644; J1650; J1885; J2060; J2250; J2270; J2405; J2543; J3010; J3370; J3411; J3475; J3480; J7030; J7040; J7050; J7120; J7512; S0020

== ENCOUNTER 2017-08-22 18:33 | Emergency (ER) | payer OTHER ==
[~2017-08-22] VITALS: Ht 165.1 cm; Wt 65.0 kg
[~2017-08-22 18:33] MED LIST changes: +DOCUSATE SODIU100 MG PO; +NARCAN4 MG NS; +ROCEPHIN 2 GM VI2 GM IV
[2017-08-22] MEDS ORDERED: INDOCIN50 MG PO (20:08)
[2017-08-22 20:22] VITALS: BP 105/77
== END 2017-08-22 20:23 | disposition home or self-care (01) ==
LOC: RME 18:33 → EME 18:33 → RME 20:23
DX: M79.642 Pain in left hand (principal); W19.XXXA Unspecified fall, initial encounter; F10.129 Alcohol abuse with intoxication, unspecified; Z88.2 Allergy status to sulfonamides; Z87.891 Personal history of nicotine dependence
CPT/HCPCS: 99281; 99283

== ENCOUNTER 2017-09-09 09:01 | Inpatient (IN) | payer OTHER ==
[~2017-09-09] VITALS: Ht 165.1 cm; Wt 67.3 kg
[~2017-09-09 09:01] MED LIST changes: +INDOCIN50 MG PO
[2017-09-09 10:31] LABS: HEMATOCRIT 42.7 % (38.0-50.0); MCH 32.3 PG (29.0-34.0); MCHC 35.1 G/DL (30.0-36.0); MCV 91.8 FL (86-99); PLATELET COUNT 236 K/uL (156-360); RBC DIS.WIDTH-CV 13.2 % (11.8-14.6); RBC DIS.WIDTH-SD 45.1 % (39-53); RED BLOOD COUNT 4.65 M/uL (4.00-5.50); WHITE BLOOD COUNT 7.8 K/uL (4.1-10.2)
[2017-09-09 10:45] LABS: CHLORIDE 105 mEq/L (99-109); POTASSIUM 4.4 mEq/L (3.7-5.4); SODIUM 138 mEq/L (136-147)
[2017-09-09 10:46] LABS: GLUCOSE 110 mg/dL (70-99)
[2017-09-09 10:50] LABS: CREATININE 0.8 mg/dL (0.6-1.3); GFR ESTIMATE (CALCULATED) > 59 mL/min/ (58.99-99999)
[2017-09-09 10:51] LABS: UREA NITROGEN (BUN) 16 mg/dL (9-23)
[2017-09-09 12:49] LABS: SERUM ETHYL ALCOHOL < 10 mg/dL
[2017-09-09] MEDS ORDERED: INDOMETHACIN50 MG PO (13:10)
[2017-09-09] MEDS ORDERED: PERCOCET 10/1 TABLET PO (13:10)
[2017-09-09] MEDS ORDERED: CHLORZOXAZONE500 MG PO (13:10)
[2017-09-09 14:12] VITALS: BP 121/74
[2017-09-09 16:06] VITALS: BP 102/58
[2017-09-09 20:00] VITALS: BP 110/59
[2017-09-10 00:15] LABS: APPEARANCE CLEAR ((CLEAR)); BILIRUBIN NEGATIVE; BLOOD NEGATIVE; COLOR STRAW ((YELLOW)); GLUCOSE (STRIP) NEGATIVE; KETONES NEGATIVE; LEUKOCYTES NEGATIVE; NITRITE NEGATIVE; PROTEIN (STRIP) NEGATIVE; SPECIFIC GRAVITY 1.004 (1.000-1.030); UCUL ADDED? NO; UROBILINOGEN 0.2 MG/DL (0.2-1.0)
[2017-09-10 00:38] VITALS: BP 114/69
[2017-09-10 02:17] LABS: BENZODIAZEPINES, URINE SCREEN Negative (200 ng/mL)
[2017-09-10 04:00] VITALS: BP 117/69
[2017-09-10 06:14] LABS: HEMATOCRIT 41.3 % (38.0-50.0); HEMOGLOBIN 13.9 G/DL (12.5-16.6); MCH 31.9 PG (29.0-34.0); MCHC 33.7 G/DL (30.0-36.0); MCV 94.7 FL (86-99); PLATELET COUNT 179 K/uL (156-360); RBC DIS.WIDTH-CV 13.2 % (11.8-14.6); RBC DIS.WIDTH-SD 46.6 % (39-53); RED BLOOD COUNT 4.36 M/uL (4.00-5.50); WHITE BLOOD COUNT 6.2 K/uL (4.1-10.2)
[2017-09-10 06:38] LABS: ALBUMIN 3.3 G/DL (3.2-4.8); ALKALINE PHOSPHATASE 67 IU/L (3-129); ALT (GPT) 17 IU/L (3-49); AST (GOT) 10 IU/L (2-34); CHLORIDE 108 MEQ/L (99-109); GFR ESTIMATE (CALCULATED) > 59 mL/min/ (58.99-99999); GLUCOSE 104 mg/dL (70-99); POTASSIUM 4.5 MEQ/L (3.7-5.4); SODIUM 142 MEQ/L (136-147); TOTAL BILIRUBIN 0.4 MG/DL (0.0-1.0); TOTAL PROTEIN 5.5 G/DL (6.4-8.3); UREA NITROGEN (BUN) 15 mg/dL (9-23)
[2017-09-10 07:15] VITALS: BP 147/83
[2017-09-10 10:01] LABS: INTACT PARATHYROID HORMONE 31 pg/mL (10-69)
[2017-09-10 11:31] VITALS: BP 114/68
[2017-09-10 15:15] VITALS: BP 129/79
[2017-09-10 19:48] VITALS: BP 134/69
[2017-09-11] VITALS (7 sets, daily range): BP systolic 108–137; BP diastolic 70–88
[2017-09-12 03:48] VITALS: BP 127/73
[2017-09-12 07:29] VITALS: BP 122/78
[2017-09-12] MEDS ORDERED: CEFADROXIL1 GM PO (08:13)
[2017-09-12] MEDS ORDERED: GABAPENTIN100 MG PO (08:18)
[2017-09-12] MEDS ORDERED: TRAMADOL HCL50 MG PO (13:03)
== END 2017-09-12 14:03 | disposition home or self-care (01) | DRG 603 ==
LOC: EME 09:01 → 5SOUTH 12:27 → EDOF 12:27 → ENRESERV 12:33 → 5SOUTH 13:09 → ENPENDDIS 09-12 10:08 → 5SOUTH 09-12 14:03
PROVIDERS: Internal Medicine; Nurse Practitioner Family
DX: L02.512 Cutaneous abscess of left hand (principal); L03.114 Cellulitis of left upper limb; S61.452D Open bite of left hand, subsequent encounter; Y04.1XXD Assault by human bite, subsequent encounter; M65.142 Other infective (teno)synovitis, left hand; E83.52 Hypercalcemia; E86.0 Dehydration; J44.9 Chronic obstructive pulmonary disease, unspecified; G89.29 Other chronic pain; M54.9 Dorsalgia, unspecified; F41.9 Anxiety disorder, unspecified; F10.20 Alcohol dependence, uncomplicated; F19.10 Other psychoactive substance abuse, uncomplicated; F17.210 Nicotine dependence, cigarettes, uncomplicated; Z87.11 Personal history of peptic ulcer disease; Z98.1 Arthrodesis status; Z96.89 Presence of other specified functional implants
CPT/HCPCS: 73130; 80048; 80053; 80306 90; 81003; 83970; 85027; 87040; 87070; 87075; 87077; 87186; 87205; 87801; 94640; 94799; 99281; 99285; G0480; J0690; J1650; J1885; J2543; J7030; J7050